=== PATIENT | female | born 1955 | race Caucasian/White ===

== ENCOUNTER → 2021-11-27 13:18 | Outpatient (BNVA) | payer MEDICARE, OTHER, SELFPAY | PROVIDERS: PCP Student in an Organized Health Care Education/Training Program; Referring Provider Student in an Organized Health Care Education/Training Program; Visit Provider Orthopaedic Surgery | DX: S82.851A Displaced trimalleolar fracture of right lower leg, initial encounter for closed fracture (principal); X50.1XXA Overexertion from prolonged static or awkward postures, initial encounter | CPT/HCPCS: 26605; 99203 ==

== ENCOUNTER 2021-12-06 06:37 | Day surgery (SDC) | payer MEDICARE, OTHER, SELFPAY ==
[2021-12-05 13:13] VITALS: BMI 29.7
[2021-12-06] VITALS (14 sets, daily range): BP systolic 119–162; BP diastolic 73–102; PULSE 70–88; RESP 12–18; TEMP 36.2–36.8; O2SAT 90–100
--- NOTE | 2021-12-06 | SCC_ITS ---
ORIF trimalleolar fracture left ankle 25.4 seconds of fluoroscopic guidance, for a cumulative dose of 0.67 mGy, was provided to Dr. Mai by the radiology department. C-arm images of the right ankle were saved for the patient's permanent record. [facility]ERS[facility]
--- NOTE | 2021-12-06 | XR_ITS ---
WS: [id number] Right ankle, C-arm fluoroscopy, 12/06/2021 Clinical Data: ORIF FRACTURE/OR PICS Comparison: None. Findings: Dr. Mai performed an internal fixation of a trimalleolar fracture of the right ankle. XR/XR ankle RT min 3V* [id number] Impression: Internal fixation of trimalleolar fracture of the right ankle.
[2021-12-06] MEDS: sodium chloride 0.9% 1,000 ML 30 ML IV (07:06)
[2021-12-06] MEDS: scopolamine 1.5 Patch 1 PATCH TRANSDERMA (07:08)
--- NOTE | 2021-12-06 07:24 | P.ANESASSM_ITS ---
Pre-Anesthetic Assessment Height/Weight: Height 1.7 m Weight 86.183 kg Temp Pulse Resp BP Pulse Ox 97.6 F 86 16 162/90 97 12/06/21 06:48 12/06/21 06:48 12/06/21 06:48 12/06/21 06:48 12/06/21 06:48 Preop Diagnosis: trimalleolar fracture left ankle Operation Date: 12/06/21 08:05 Proposed Procedures p ORIF Ankle 18631/s82.851A(Right) - Иван Mai MD Familial anesthetic complications: none Was Beta Jacinto taken within 24 hours: N/A Was Clonidine taken within 24 hours: N/A Last intake: Intake Last Liquid Date 12/05/21 Last Liquid Time 21:00 Last Solid Date 12/05/21 Last Solid Time 19:00 Social Alcohol (glass of wine a night) and No tobacco Exam alert, oriented x 3, clear to auscultation bilaterally and regular rate & rhythm Airway Mallampati: Class II Dentition: full Pulmonary None reported CV/HEM None reported None reported Hepatic None reported GI None reported Metabolic Thyroid Disease [facility] [place] None reported Neuropsych None reported Anesthetic Plan ASA status: 2 Anesthesia: General and Regional (specify below) Risk of > 500 ml blood loss (7ml/kg in children): No Medications/Allergies Home Medications Medication Instructions Recorded Confirmed Last Taken Type duloxetine 20 mg capsule,delayed 20 mg PO DAILY cap 11/27/21 12/06/21 12/06/21 History release (Cymbalta) gabapentin 300 mg capsule 600 mg PO BID cap 11/27/21 12/06/21 12/06/21 History levothyroxine 88 mcg tablet 88 mcg PO DAILY 11/27/21 12/06/21 12/05/21 History (Synthroid) venlafaxine 25 mg tablet 25 mg PO DAILY 11/27/21 12/06/21 12/05/21 History hydrocodone 5 mg-acetaminophen 325 1 tab PO QID 12/05/21 12/06/21 12/05/21 History mg tablet Allergies Allergy/AdvReac Type Severity Reaction Status Date / Time doxycycline Allergy rash Verified 12/06/21 06:45 Current Medications Generic Name Dose Route Start Last Admin Trade Name Freq PRN Reason Stop Dose Admin Sodium Chloride 1,000 mls @ 30 mls/hr 12/06/21 06:45 12/06/21 07:06 Sodium Chloride 0.9% IV 12/07/21 06:44 30 mls/hr .Q24H JASMIN Administration PFSH Anesthesia Social History (Updated 11/27/21 @ 13:34 by Cy Monroy LPN) Smoking and tobacco status: never smoked Alcohol intake: never Data Anesthesia Cardiac Studies: No Data to Display
--- NOTE | 2021-12-06 07:25 | ANES.PROC ---
Anesthesia Procedures Procedure/Date: 12/06/21 Nerve Block ^: Nerve Block 1: Main Anesthesia: general anesthesia Time Out Performed: Yes Consent: requested by attending/covering physician, from patient, risks and benefits reviewed and patient agrees to proceed Nerve block location: popliteal (R) Anesthesia monitors applied: pulse oximetry, EKG, BP cuff and oxygen Nerve block position: supine Anesthetic Used: ropivicaine 0.5% (30 ml) and with decadron (4 mg) Ultrasound used to: recognize landmarks Nerve Stimulator Used?: No Interscalene/Femoral BLK: 4 stimuplex 21 g needle used for position and inplane approach, visualize local anesthetic spread and no vascular puncture identified Injection: neg aspiration of heme Patient Tolerated Procedure: well and no complications Complications: none Additional Comments: Patient experienced parasthesia in toes with first 1 ml test injection, needle repositioned, no further parasthesias reported
--- NOTE | 2021-12-06 07:49 | W.PM.OPSUD ---
Surgery/Procedure H&P Update DATE OF PROCEDURE: December 06, 2021 DATE H&P PERFORMED: 11/27/21 H&P UPDATE INFORMATION: I have reviewed H&P completed within last 30 days PREOP DIAGNOSIS: trimalleolar fracture left ankle PLANNED PROCEDURE: Operation Date: 12/06/21 08:05 Proposed Procedures p ORIF Ankle 32482/s82.851A(Right) - Иван Mai MD
--- NOTE | 2021-12-06 09:57 | P.OP_ITS ---
Operative Report Date of procedure: December 06, 2021 Pre-op diagnosis: Preop Diagnosis trimalleolar fracture left ankle Post-op diagnosis: same Implants: [place] V[employer] short lateral malleolar plate (8 screws), interfragmentary screw (1), and 2 ASNIS 3 4.0 cannulated screws Estimated blood loss (mL): 20 Tourniquet time (min): 57 Complications: None Findings: The patient had a trimalleolar ankle fracture consisting of an oblique fracture of the lateral malleolus at the level of the mortise. A oblique fracture extending from the mortise across the medial malleolus and a small posterior malleolar fragment. Condition: other Disposition: PACU Brief History: The patient is a 63-year-old female who fell outside her home sustaining a trimalleolar fracture dislocation. She was seen in an [facility] emergency room reduced and seen by me on 11/25/2021. Fracture blistering was identified medially and surgery was delayed to allow time for skin healing. She was admitted for open reduction internal fixation of the fracture to obtain anatomic alignment of the talus in the mortise reducing the risk of future degenerative changes and functional loss Procedure: The patient was taken to the operating room and given a general anesthesia. She was given 2 g of Ancef. She is prepped and draped in the supine position with a tourniquet on the right thigh. The tourniquet was inflated to 350 mmHg. Initially a medial incision 3 cm long was made over the medial malleolus and dissection carried down all full-thickness down to the fracture. With a towel clamp the medial malleolus was reduced. Two 4.0 mm cannulated screws with was hers. were passed across the fracture angling posterior to engage the posterior cortex and maximize compression. Next a 5 cm lateral incision was made from the tip of the lateral malleolus extending proximally. Dissection was carried full-thickness down to the fibula the fracture was identified as a an oblique facture line extending posteriorly and laterally. Fracture hematoma and scar tissue was removed and with a clamp the fibula could be brought out to length and reduced. Bone quality was noted to be slightly diminished. The 8 hole lateral malleolar plate was contoured over the posterior lateral fibula. It was fixed distally with 4 locking screws and proximally with 4. Nonlocking screws. A single anterior to posterior compression screw was placed across the fracture. Wounds were irrigated with saline. Deep tissues were closed with 2-0 Vicryl. The skin was closed with skin venecia. Incisions were covered with Xeroflo gauze, 4 x 4's, compressive web roll, and an Kirit wrap and the patient was placed in a postop boot.
[2021-12-06] MEDS: fentaNYL 50 mcg/mL INJ 2mL IVP (10:16)
[2021-12-06] MEDS: oxyCODONE-APAP 5-325 mg Tablet 1 TAB PO (10:49)
[2021-12-06] MEDS: acetaminophen 500 mg Tablet 1000 MG PO (11:18)
--- NOTE | 2021-12-06 13:21 | ANE.PACU2 ---
Inpatient post-anesthesia follow up: Airway intact: Yes Vital signs: Temperature 97.8 F Pulse Rate 71 Respiratory Rate 18 Blood Pressure 119/73 Pulse Oximetry 92 Oxygen Delivery Me thod Room Air Oxygen Flow Rate 2 Fraction of Inspir ed Oxygen Hydration adequate: Yes Nausea and vomiting: No Pain level: 1 Mental status: Baseline
== END 2021-12-06 12:12 | disposition home or self-care (01) ==
PROVIDERS: PCP Student in an Organized Health Care Education/Training Program; Visit Provider Orthopaedic Surgery
PROC: (CPT 27822; principal; 2021-12-06 07:55)
DX: S82.852A Displaced trimalleolar fracture of left lower leg, initial encounter for closed fracture (principal); W19.XXXA Unspecified fall, initial encounter
CPT/HCPCS: 27822; 64450; 73610; 76000; 76942; C1713; J0690; J1100; J1580; J2250; J2405; J2704; J2710; J2795; J3010; J3490; J7030

== ENCOUNTER → 2021-12-26 10:16 | Outpatient (BNVA) | payer MEDICARE, OTHER, SELFPAY | PROVIDERS: PCP Student in an Organized Health Care Education/Training Program; Visit Provider Orthopaedic Surgery | DX: S82.851A Displaced trimalleolar fracture of right lower leg, initial encounter for closed fracture (principal); X50.1XXA Overexertion from prolonged static or awkward postures, initial encounter; Z87.891 Personal history of nicotine dependence | CPT/HCPCS: 26605; 73600 ==

== ENCOUNTER → 2022-01-23 14:13 | Outpatient (BNVA) | payer MEDICARE, OTHER, SELFPAY | PROVIDERS: PCP Student in an Organized Health Care Education/Training Program; Visit Provider Orthopaedic Surgery | DX: Z98.890 Other specified postprocedural states (principal) | CPT/HCPCS: 73610 ==

== ENCOUNTER → 2022-02-19 14:41 | Outpatient (BNVA) | payer MEDICARE, OTHER, SELFPAY | PROVIDERS: PCP Student in an Organized Health Care Education/Training Program; Visit Provider Orthopaedic Surgery | DX: Z98.890 Other specified postprocedural states (principal) | CPT/HCPCS: 73610; 99024 ==